=== PATIENT | female | born 1955 | race Caucasian/White ===

== ENCOUNTER 2018-07-12 16:12 | Outpatient (CLI) | payer OTHER ==
--- NOTE | 2018-07-12 16:35 | RAD ---
THREE VIEWS OF THE LEFT ANKLE: 07/12/17 COMPARISON: None. HISTORY: Left ankle pain and swelling. FINDINGS: Three views of the left ankle shows no evidence of acute fracture or dislocation. Mild diffuse soft t issue swelling is seen. No degenerative changes are present. IMPRESSION: No evidence of acute osseous abnormality. POS: [facility]
--- NOTE | 2018-07-12 16:38 | RAD ---
THREE VIEWS OF THE LEFT FOOT: 07/12/18 COMPARISON: None. HISTORY: Pain and swelling without history of injury. FINDINGS: Three views of the left foot shows no evidence of acute fracture or dislocation. Mild diffuse soft ti ssue swelling is seen. No degenerative changes are present. IMPRESSION: No evidence of acute osseous abnormality. POS: [facility]
== END 2018-07-12 16:13 | disposition home or self-care (01) ==
LOC: BICRAD 16:12
DX: M79.672 Pain in left foot (principal)

== ENCOUNTER 2020-10-30 09:10 | Outpatient (CLI) | payer MEDICARE | END 2020-10-30 09:11 | disposition home or self-care (01) | LOC: BICULT 09:10 | PROVIDERS: ATTEND Family Medicine | DX: R74.8 Abnormal levels of other serum enzymes (principal); K76.89 Other specified diseases of liver | CPT/HCPCS: 76705 ==

== ENCOUNTER 2020-11-04 09:34 | Outpatient (CLI) | payer MEDICARE | END 2020-11-04 09:35 | disposition home or self-care (01) | LOC: BICMAMMO 09:34 | PROVIDERS: ATTEND Family Medicine | DX: Z12.31 Encounter for screening mammogram for malignant neoplasm of breast (principal); Z13.820 Encounter for screening for osteoporosis; M81.0 Age-related osteoporosis without current pathological fracture | CPT/HCPCS: 77063; 77067; 77080 ==

== ENCOUNTER 2021-02-02 08:02 | Outpatient (CLI) | payer MEDICARE | END 2021-02-02 08:03 | disposition home or self-care (01) | LOC: ULT 08:02 | PROVIDERS: ATTEND Family Medicine | DX: K76.89 Other specified diseases of liver (principal); N28.1 Cyst of kidney, acquired | CPT/HCPCS: 76705 ==

== ENCOUNTER 2021-06-09 10:49 | Outpatient (CLI) | payer MEDICARE ==
[~2021-06-09 10:49] MED LIST: Magnevist 469MG/ML 20 ML VIAL ONE
[2021-06-09 11:20] LABS: Estimated GFR-MDRD - POC Greater than 90
== END 2021-06-09 10:50 | disposition home or self-care (01) ==
LOC: MRI 10:49
PROVIDERS: ATTEND Internal Medicine
DX: Z12.11 Encounter for screening for malignant neoplasm of colon (principal); K76.89 Other specified diseases of liver; N28.1 Cyst of kidney, acquired
CPT/HCPCS: 74183; 82565; A9579

== ENCOUNTER 2022-05-26 09:59 | Outpatient (CLI) | payer MEDICARE | END 2022-05-26 10:00 | disposition home or self-care (01) | LOC: BICRAD 09:59 | PROVIDERS: ATTEND Family Medicine | DX: M54.6 Pain in thoracic spine (principal); M48.54XA Collapsed vertebra, not elsewhere classified, thoracic region, initial encounter for fracture | CPT/HCPCS: 72072 ==